=== PATIENT | female | born 1935 | race Caucasian/White ===

== ENCOUNTER 2018-10-10 17:38 | Inpatient (IN) | payer MEDICARE, OTHER ==
[~2018-10-10] VITALS: Ht 162.6 cm; Wt 68.6 kg
[2018-10-10] MEDS ORDERED: SODIUM CHLORIDE FLUSH 10ML SYR IVF ONE (18:00)
--- NOTE | 2018-10-10 18:06 | NUR ---
pt bib ems for progressive generalized weakness. pt reports bed sore upon arrival. connected to monitor. vss. md assessment complete. xray and ekg complete. pt to imaging at this time.
--- NOTE | 2018-10-10 18:53 | NUR ---
BREAK RN: PIV started, labs drawn. Straight cath done and urine walked to lab.
[2018-10-10 19:01] LABS: BASOPHILS # (AUTO) 0.04 x10^3/uL (0-0.1); BASOPHILS % (AUTO) 0 % (0-1); EOSINOPHILS % (AUTO) 0 % (1-7); LYMPHOCYTES # (AUTO) 1.35 x10^3/uL (1-3.4); LYMPHOCYTES % (AUTO) 9 % (22-44); MD NO; MEAN CORPUSCULAR HEMOGLOBIN 31.2 pg (27.0-34.8); MEAN CORPUSCULAR HGB CONC 33.9 g/dL (32.4-35.8); MEAN CORPUSCULAR VOLUME 91.9 fL (80-100); MEAN PLATELET VOLUME 9.1 fL (7.4-10.4); MONOCYTES # (AUTO) 1.04 x10^3/uL (0.2-0.8); MONOCYTES % (AUTO) 7 % (2-9); NEUTROPHILS # (AUTO) 12.58 x10^3/uL (1.8-6.8); NEUTROPHILS % (AUTO) 84 % (42-75); PLATELET COUNT 364 x10^3/uL (130-400); RED BLOOD COUNT 4.44 x10^6/uL (3.82-5.3)
[2018-10-10 19:11] LABS: ALBUMIN 2.9 g/dL (3.4-5.0); ANION GAP 8 mmol/L (5-15); CALCIUM 9.2 mg/dL (8.5-10.1); CHLORIDE 103 mmol/L (98-107)
[2018-10-10 19:15] LABS: ALANINE AMINOTRANSFERASE 7 U/L (12-78); ALKALINE PHOSPHATASE 197 U/L (45-117); BILIRUBIN,TOTAL 0.8 mg/dL (0.2-1.0); CREATININE 1.29 mg/dL (0.55-1.02); TOTAL PROTEIN 7.6 g/dL (6.4-8.2)
[2018-10-10] MEDS ORDERED: SODIUM CHLORIDE 0.9% 1,000 ML IV ONE ×2 (19:20→19:46)
[2018-10-10 19:28] LABS: MICROSCOPIC INDICATED
[2018-10-10 19:29] LABS: CULTURE INDICATED? YES
[2018-10-10] MEDS ORDERED: CEFTRIAXONE PMX 1GM/50ML 50 ML ONE (19:41)
--- NOTE | 2018-10-10 19:41 | NUR ---
THROUGHPUT RN: STILL AWAITING [facility]OS, LAB CONTACTED, STATED IT WILL JUST BE A FEW MOMENTS.
--- NOTE | 2018-10-10 19:46 | NUR ---
PT MEDICATED PER OCT. RESTING IN ROOM WITH LIGHTS DIMMED. VSS. NO NEEDS AT THIS TIME.
[2018-10-10] MEDS ORDERED: BISACODYL 10 MG SUPP PR PRN (20:00)
[2018-10-10] MEDS ORDERED: SODIUM CHLORIDE FLUSH 10ML SYR IVF PRN (20:00)
[2018-10-10] MEDS ORDERED: CEFTRIAXONE PMX 1GM/50ML 50 ML IV ONE (20:00)
[2018-10-10] MEDS ORDERED: ONDANSETRON ODT 4 MG PO PRN (20:00)
[2018-10-10] MEDS ORDERED: ONDANSETRON 2MG/ML, 2ML IVPush PRN (20:00)
[2018-10-10] MEDS ORDERED: POLYETHYLENE GLYCOL 17 GM PACKET PO PRN (20:00)
[2018-10-10] MEDS ORDERED: DOCUSATE 100 MG CAPSULE PO PRN (20:00)
--- NOTE | 2018-10-10 20:14 | NUR ---
report to RUPERT Lechuga. pt ready for transport.
[2018-10-10] MEDS: CEFTRIAXONE PMX 1GM/50ML 50 ML IV SCH (20:27)
[2018-10-10] MEDS: INSULIN LISPRO 100 UNITS/ML, PEN SQ-INSULIN SCH (21:38)
[2018-10-10] MEDS: SODIUM CHLORIDE 0.9% 1,000 ML IV SCH (21:40)
[2018-10-10] MEDS: ACETAMINOPHEN 500 MG TABLET PO PRN (22:03)
[2018-10-11 01:01] VITALS: BP 118/76
[2018-10-11 05:40] LABS: ANION GAP 8 mmol/L (5-15); CALCIUM 8.5 mg/dL (8.5-10.1); CHLORIDE 108 mmol/L (98-107); CREATININE 0.88 mg/dL (0.55-1.02)
[2018-10-11 05:43] LABS: BASOPHILS # (AUTO) 0.05 x10^3/uL (0-0.1); BASOPHILS % (AUTO) 1 % (0-1); EOSINOPHILS # (AUTO) 0.22 x10^3/uL (0-0.4); EOSINOPHILS % (AUTO) 2 % (1-7); LYMPHOCYTES # (AUTO) 2.25 x10^3/uL (1-3.4); LYMPHOCYTES % (AUTO) 23 % (22-44); MD NO; MEAN CORPUSCULAR HEMOGLOBIN 30.9 pg (27.0-34.8); MEAN CORPUSCULAR HGB CONC 33.5 g/dL (32.4-35.8); MEAN CORPUSCULAR VOLUME 92.3 fL (80-100); MEAN PLATELET VOLUME 9.3 fL (7.4-10.4); MONOCYTES % (AUTO) 10 % (2-9); NEUTROPHILS # (AUTO) 6.13 x10^3/uL (1.8-6.8); NEUTROPHILS % (AUTO) 64 % (42-75); PLATELET COUNT 288 x10^3/uL (130-400); RED BLOOD COUNT 3.77 x10^6/uL (3.82-5.3); RED CELL DISTRIBUTION WIDTH 14.5 % (9.6-15.2)
[2018-10-11 06:42] VITALS: BP 145/63
[2018-10-11] MEDS: INSULIN LISPRO 100 UNITS/ML, PEN SQ-INSULIN SCH ×4 (07:00→20:03)
[2018-10-11] MEDS ORDERED: ENOXAPARIN 30 MG/0.3 ML SQ SCH (09:00)
[2018-10-11] MEDS: SODIUM CHLORIDE 0.9% 1,000 ML IV SCH (11:43)
[2018-10-11] MEDS: ENOXAPARIN 40 MG/0.4 ML SQ SCH (11:43)
[2018-10-11 12:10] VITALS: BP 155/71
[2018-10-11] MEDS: POTASSIUM CHLORIDE 20 MEQ TAB.ER.PRT PO SCH ×2 (15:30→17:00)
[2018-10-11] MEDS ORDERED: MAGNESIUM SULFATE PMX 2GM/50ML 50 ML IV ONE (15:30)
[2018-10-11 19:47] VITALS: BP 153/83
[2018-10-11] MEDS: CEFTRIAXONE PMX 1GM/50ML 50 ML IV SCH (20:17)
[2018-10-11] MEDS: ACETAMINOPHEN 500 MG TABLET PO PRN (22:15)
[2018-10-12 01:18] VITALS: BP 149/78
[2018-10-12] MEDS: SODIUM CHLORIDE 0.9% 1,000 ML IV SCH (02:23)
[2018-10-12 06:15] LABS: ALBUMIN 2.1 g/dL (3.4-5.0); ANION GAP 4 mmol/L (5-15); CALCIUM 8.4 mg/dL (8.5-10.1); CHLORIDE 115 mmol/L (98-107)
[2018-10-12 06:17] LABS: CREATININE 0.61 mg/dL (0.55-1.02)
[2018-10-12] MEDS: INSULIN LISPRO 100 UNITS/ML, PEN SQ-INSULIN SCH ×4 (07:28→19:36)
[2018-10-12 07:40] VITALS: BP 164/65
[2018-10-12] MEDS: PHENAZOPYRIDINE 200 MG TABLET PO SCH ×3 (08:55→20:04)
[2018-10-12] MEDS: POTASSIUM CHLORIDE 20 MEQ TAB.ER.PRT PO SCH ×2 (08:55→16:58)
[2018-10-12] MEDS ORDERED: POTASSIUM PHOSPHATE 20 MMOL in SODIUM CHLORIDE 0.9% 500 ML IV ONE (09:30)
[2018-10-12] MEDS ORDERED: SODIUM PHOSPHATE 20 MMOL in SODIUM CHLORIDE 0.9% 500 ML IV ONE (09:30)
[2018-10-12] MEDS ORDERED: OXYB5TAB7 PO (11:39)
[2018-10-12] MEDS ORDERED: GABA300C10 PO (11:39)
[2018-10-12] MEDS ORDERED: METO50TA82 PO (11:39)
[2018-10-12] MEDS ORDERED: POTA10TA5 PO (11:39)
[2018-10-12] MEDS ORDERED: TAMS-11 PO (11:39)
[2018-10-12] MEDS ORDERED: GEMF600T PO (11:39)
[2018-10-12] MEDS ORDERED: METF500T17 PO (11:39)
[2018-10-12] MEDS ORDERED: FURO20TA3 PO (11:39)
[2018-10-12] MEDS ORDERED: CLOP75TA52 PO (11:39)
[2018-10-12] MEDS ORDERED: GLIP5TAB10 PO (11:39)
[2018-10-12] MEDS: ENOXAPARIN 40 MG/0.4 ML SQ SCH (12:22)
[2018-10-12 13:07] VITALS: BP 134/76
[2018-10-12 19:04] VITALS: BP 150/69
[2018-10-12] MEDS: ACETAMINOPHEN 500 MG TABLET PO PRN (20:04)
[2018-10-12] MEDS: CEFTRIAXONE PMX 1GM/50ML 50 ML IV SCH (20:04)
[2018-10-13] MEDS: GABAPENTIN 300 MG CAPSULE PO SCH ×2 (00:57→19:28)
[2018-10-13 01:16] VITALS: BP 136/54
[2018-10-13 06:26] VITALS: BP 158/65
[2018-10-13] MEDS: INSULIN LISPRO 100 UNITS/ML, PEN SQ-INSULIN SCH ×4 (07:15→19:27)
[2018-10-13] MEDS: POTASSIUM CHLORIDE 20 MEQ TAB.ER.PRT PO SCH (08:34)
[2018-10-13] MEDS: PHENAZOPYRIDINE 200 MG TABLET PO SCH ×3 (08:34→19:28)
[2018-10-13] MEDS ORDERED: FLUCONAZOLE 100 MG TABLET PO ONE (11:00)
[2018-10-13 13:04] VITALS: BP 152/72
[2018-10-13] MEDS ORDERED: NEUTRA PHOS K 250 MG TABLET PO SCH (13:30)
[2018-10-13] MEDS: ENOXAPARIN 40 MG/0.4 ML SQ SCH (13:37)
[2018-10-13] MEDS ORDERED: OMNIPAQUE 350 MG/ML, 100ML BOTTLE ONE (17:48)
[2018-10-13 18:36] VITALS: BP 138/69
[2018-10-13] MEDS: CEFTRIAXONE PMX 1GM/50ML 50 ML IV SCH (19:28)
[2018-10-13] MEDS: DOCUSATE 100 MG CAPSULE PO SCH (19:29)
[2018-10-14 01:44] VITALS: BP 144/66
[2018-10-14] MEDS: INSULIN LISPRO 100 UNITS/ML, PEN SQ-INSULIN SCH ×4 (07:00→20:40)
[2018-10-14 07:17] VITALS: BP 156/66
[2018-10-14] MEDS: DOCUSATE 100 MG CAPSULE PO SCH ×2 (07:19→20:40)
[2018-10-14] MEDS ORDERED: BISA10SU54 PR (10:35)
[2018-10-14] MEDS ORDERED: ACET500T71 PO (10:35)
[2018-10-14] MEDS ORDERED: DOCU-131 PO (10:35)
[2018-10-14] MEDS ORDERED: POLY17PO5 PO (10:35)
[2018-10-14] MEDS: ENOXAPARIN 40 MG/0.4 ML SQ SCH (11:22)
[2018-10-14] MEDS ORDERED: CEFD300C37 PO (13:50)
[2018-10-14 17:28] VITALS: BP 142/70
[2018-10-14 19:10] VITALS: BP 140/66
[2018-10-14] MEDS: CEFTRIAXONE PMX 1GM/50ML 50 ML IV SCH (19:39)
[2018-10-14] MEDS: GABAPENTIN 300 MG CAPSULE PO SCH (20:40)
[2018-10-14] MEDS: ACETAMINOPHEN 500 MG TABLET PO PRN (21:48)
[2018-10-15 00:39] VITALS: BP 152/63
[2018-10-15 06:44] VITALS: BP 148/68
[2018-10-15] MEDS: INSULIN LISPRO 100 UNITS/ML, PEN SQ-INSULIN SCH ×3 (07:00→16:00)
[2018-10-15] MEDS: DOCUSATE 100 MG CAPSULE PO SCH (07:51)
[2018-10-15] MEDS: ENOXAPARIN 40 MG/0.4 ML SQ SCH (11:23)
[2018-10-15 12:08] VITALS: BP 161/73
== END 2018-10-15 17:17 | DRG 871 ==
LOC: ED 18:45 → SUATTDRO 19:41 → EDIP 19:43 → 3NE 20:35
PROVIDERS: ADMIT Hospitalist; ATTEND Hospitalist
PROC: 0T9B70Z Drainage of Bladder with Drainage Device, Via Natural or Artificial Opening (ICD-10-PCS; principal; 2018-10-10)
DX: A41.9 Sepsis, unspecified organism (principal); E43 Unspecified severe protein-calorie malnutrition; N17.0 Acute kidney failure with tubular necrosis; B96.4 Proteus (mirabilis) (morganii) as the cause of diseases classified elsewhere; E11.40 Type 2 diabetes mellitus with diabetic neuropathy, unspecified; E83.39 Other disorders of phosphorus metabolism; E87.6 Hypokalemia; I10 Essential (primary) hypertension; I25.2 Old myocardial infarction; K59.00 Constipation, unspecified; N28.1 Cyst of kidney, acquired; N30.90 Cystitis, unspecified without hematuria; Q62.5 Duplication of ureter; R29.6 Repeated falls; R62.7 Adult failure to thrive; W18.30XA Fall on same level, unspecified, initial encounter; B37.3 Candidiasis of vulva and vagina; Z68.26 Body mass index [BMI] 26.0-26.9, adult; Z86.73 Personal history of transient ischemic attack (TIA), and cerebral infarction without residual deficits; Z90.710 Acquired absence of both cervix and uterus; Y93.89 Activity, other specified; Y92.89 Other specified places as the place of occurrence of the external cause; Y99.8 Other external cause status
CPT/HCPCS: 36415; 51702; 70450; 71045; 74178; 76770; 80048; 80053; 81001; 82040; 82962; 83735; 84100; 85025; 87077; 87086; 87186; 93005; 99285; G0378; J0696; J1650; Q9967; J1815; J3475; J7030; J7040

== ENCOUNTER → 2018-12-21 | Outpatient (CLI) | payer MEDICARE, MEDICAID ==
[~2018-12-21] MED LIST: ACET500T71 PO; BISA10SU54 PR; CEFD300C37 PO; CLOP75TA52 PO; DOCU-131 PO; FURO20TA3 PO; GABA300C10 PO; GEMF600T PO; GLIP5TAB10 PO; METF500T17 PO; METO50TA82 PO; OXYB5TAB7 PO; POLY17PO5 PO; POTA10TA5 PO; TAMS-11 PO
== END | disposition home or self-care (01) ==
LOC: WOUND 09:12
PROVIDERS: ATTEND Internal Medicine Infectious Disease
DX: E11.621 Type 2 diabetes mellitus with foot ulcer (principal); L97.411 Non-pressure chronic ulcer of right heel and midfoot limited to breakdown of skin; L89.610 Pressure ulcer of right heel, unstageable; E11.42 Type 2 diabetes mellitus with diabetic polyneuropathy; E11.36 Type 2 diabetes mellitus with diabetic cataract; E11.39 Type 2 diabetes mellitus with other diabetic ophthalmic complication; H40.9 Unspecified glaucoma; I11.0 Hypertensive heart disease with heart failure; I50.9 Heart failure, unspecified; I25.2 Old myocardial infarction; Z90.710 Acquired absence of both cervix and uterus; Z86.73 Personal history of transient ischemic attack (TIA), and cerebral infarction without residual deficits
CPT/HCPCS: 97597; G0463

== ENCOUNTER → 2018-12-28 | Outpatient (CLI) | payer MEDICARE, MEDICAID | END | disposition home or self-care (01) | LOC: WOUND 09:51 | PROVIDERS: ATTEND Nurse Practitioner Family | DX: E11.621 Type 2 diabetes mellitus with foot ulcer (principal); L89.610 Pressure ulcer of right heel, unstageable; E11.39 Type 2 diabetes mellitus with other diabetic ophthalmic complication; H40.9 Unspecified glaucoma; E11.42 Type 2 diabetes mellitus with diabetic polyneuropathy; E11.36 Type 2 diabetes mellitus with diabetic cataract; I11.0 Hypertensive heart disease with heart failure; I50.9 Heart failure, unspecified; I25.2 Old myocardial infarction; Z90.710 Acquired absence of both cervix and uterus; Z86.73 Personal history of transient ischemic attack (TIA), and cerebral infarction without residual deficits | CPT/HCPCS: 97597 ==

== ENCOUNTER → 2019-01-04 | Outpatient (CLI) | payer MEDICARE, MEDICAID | END | disposition home or self-care (01) | LOC: WOUND 13:00 | PROVIDERS: ATTEND Nurse Practitioner Family | DX: E11.621 Type 2 diabetes mellitus with foot ulcer (principal); L89.610 Pressure ulcer of right heel, unstageable; L97.411 Non-pressure chronic ulcer of right heel and midfoot limited to breakdown of skin; E11.36 Type 2 diabetes mellitus with diabetic cataract; E11.42 Type 2 diabetes mellitus with diabetic polyneuropathy; E11.39 Type 2 diabetes mellitus with other diabetic ophthalmic complication; H40.9 Unspecified glaucoma; I11.0 Hypertensive heart disease with heart failure; I50.9 Heart failure, unspecified; I25.2 Old myocardial infarction; Z90.710 Acquired absence of both cervix and uterus; Z86.73 Personal history of transient ischemic attack (TIA), and cerebral infarction without residual deficits | CPT/HCPCS: 97597 ==